=== PATIENT | male | born 1975 | race American Indian/Alaskan Native ===

== ENCOUNTER 2018-04-23 09:18 | Emergency (ER) | payer MEDICAID ==
[2018-04-23 09:33] VITALS: BP 135/86; PULSE 93; TEMP 98.9; O2SAT 97
--- NOTE | 2018-04-23 10:39 | C.PDOC ---
History Of Present Illness 42 y/o male presents to the ED for evaluation of a finger laceration sustained this morning. 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 No changes in sensation or focal weakness. Patient offers no other complaints. Time Seen by Provider: 04/23/18 10:31 Chief Complaint (Nursing): Abnormal Skin Integrity History Per: Patient History/Exam Limitations: no limitations Onset/Duration Of Symptoms: Hrs Current Symptoms Are (Timing): Still Present Past Medical History Reviewed: Historical Data, Nursing Documentation, Vital Signs Vital Signs: Last Vital Signs Temp 98.9 F 04/23/18 09:32 Pulse 93 H 04/23/18 09:32 Resp 18 04/23/18 10:45 BP 135/86 04/23/18 09:32 Pulse Ox 97 04/23/18 10:39 Family History: States: No Known Family Hx - Social History Hx Tobacco Use: No Hx Alcohol Use: No Hx Substance Use: No - Immunization History Hx Tetanus Toxoid Vaccination: No Hx Influenza Vaccination: No Hx Pneumococcal Vaccination: No Review Of Systems Except As Marked, All Systems Reviewed And Found Negative. Skin: Positive for: Lesions (finger laceration) Neurological: Negative for: Weakness, Numbness, Incoordination Physical Exam - Physical Exam Appears: Well, Non-toxic, No Acute Distress Skin: Normal Color, Warm, Dry Head: Atraumatic, Normacephalic Eye(s): bilateral: Normal Inspection Neck: Normal ROM Chest: Symmetrical Respiratory: No Accessory Muscle Use, Other (speaking in full sentences) Extremity: Normal ROM (with full ROM of digits), Capillary Refill (less than 2 sec), No Deformity, No Swelling, Other (Superficial 2 cm linear laceration to right 2nd digit MCP area, with minor involvement of subcutaneous fat) Pulses: Left Radial: Normal, Right Radial: Normal Neurological/Psych: Oriented x3, Normal Speech, Normal Motor, Normal Sensation Gait: Steady ED Course And Treatment O2 Sat by Pulse Oximetry: 97 (RA) Pulse Ox Interpretation: Normal Laceration - Laceration Repair L 2nd digit Wound Length (In cm): 2 Description Of Wound: Linear Wound Cleansed With: Sterile Saline (and peroxide) Wound Examination: Irrigated With Saline, No FB With Wound Exploration, No Tendon Injury With Wound Exploration Wound Closure: Steri Strips (x1), Skin Glue Wound Complexity: Simple Medical Decision Making Medical Decision Making: Plan: * laceration repair * motrin PO Impression: superficial lac L 2nd MCP now closed with steri-strips and glue Disposition Doctor Will See Patient In The: Office Counseled Patient/Family Regarding: Studies Performed, Diagnosis - Disposition Referrals: [facility] [Outside] [facility] [Outside] [facility] [Outside] Disposition: HOME/ ROUTINE Disposition Time: 10:39 Condition: GOOD Additional Instructions: keep clean and dry for 3 days steri-strips and glu will fall off naturally in about 3-4 days. Instructions: Laceration Repair With Glue (DC) Forms: [employer] (Y[place]i) - Clinical Impression Clinical Impression: Laceration - Scribe Statement The provider has reviewed the documentation as recorded by the Scribe (Varsha Dennis) Provider Attestation: All medical record entries made by the Scribe were at my direction and personally dictated by me. I have reviewed the chart and agree that the record accurately reflects my personal performance of the history, physical exam, medical decision making, and the department course for this patient. I have also personally directed, reviewed, and agree with the discharge instructions and disposition.
[2018-04-23 11:11] VITALS: RESP 18
== END 2018-04-23 11:10 | disposition home or self-care (01) ==
LOC: C.ER 09:18
DX: S61.210A Laceration without foreign body of right index finger without damage to nail, initial encounter (principal); W45.8XXA Other foreign body or object entering through skin, initial encounter; Y92.89 Other specified places as the place of occurrence of the external cause; Y99.0 Civilian activity done for income or pay